=== PATIENT | male | born 2005 | race American Indian/Alaskan Native ===

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

== ENCOUNTER 2025-03-04 09:59 | Emergency (ER) | payer OTHER ==
[~2025-03-04] VITALS: Ht 180.3 cm; Wt 116.5 kg
[2025-03-04 11:00] LABS: BASOPHILS 0.8 % (0.2-1.2); EOSINOPHILS 0.8 % (0.8-7.0); LYMPHOCYTES 30.6 % (21.8-53.1); MCH 28.9 PG (25.7-32.2); MCHC 32.9 g/dL (32.3-36.5); MCV 88.0 fL (79.0-92.2); MONOCYTES 8.2 % (5.3-12.2); NEUTROPHILS 58.6 % (34.0-67.9); RBC 5.08 M/uL (4.63-6.08)
[2025-03-04 11:24] LABS: ALT (SGPT) 28.0 U/L (14-59); AST (SGOT) 15.0 U/L (15-37); GLOMERULAR FILTRATION RATE,EST 135.0 mL/min (>60); PROTEIN, TOTAL 7.4 g/dL (6.4-8.2); UREA NITROGEN 15.0 mg/dL (7-18)
[2025-03-04 11:43] LABS: BLOOD/HGB, URINE NEGATIVE (Negative); KETONE, URINE NEGATIVE (Negative); LEUK ESTERASE, URINE NEGATIVE (negative); NITRITE, URINE NEGATIVE (negative)
[2025-03-04 13:15] VITALS: BP 122/63
== END 2025-03-04 13:15 | disposition home or self-care (01) ==
LOC: ED 09:59
PROVIDERS: Emergency Medicine
DX: N50.812 Left testicular pain (principal)
CPT/HCPCS: 36415; 74177; 76870; 80053; 81003; 85025; 85379; 99284-25; Q9967